=== PATIENT | male | born 1985 | race Caucasian/White ===

== ENCOUNTER 2018-09-21 23:34 | Emergency (ER) | payer OTHER ==
[2018-09-21 23:36] VITALS: BMI 29.0
[2018-09-21 23:44] VITALS: RESP 18; TEMP 98
--- NOTE | 2018-09-22 00:09 | ED PDOC ---
Arrival/HPI - General Chief Complaint: Alcohol Ingestion Time Seen by Provider: 09/21/18 23:38 Historian: Patient - History of Present Illness Narrative History of Present Illness (Text): 09/21/18 23:40 Naveen Nuno is a 32 year old male who presents to the Emergency department brought in by EMS for alcohol intoxication. Patient was found wandering around a [place] intoxicated. Limited HPI and ROS secondary to pat ient's alcohol intoxication. Past Medical History - Provider Review Nursing Documentation Reviewed: Yes - Psychiatric Hx Substance Use: No Family/Social History - Physician Review Nursing Documentation Reviewed: Yes Family/Social History: Unknown Family HX Smoking Status: Unknown If Ever Smoked Hx Alcohol Use: Yes (amount unknown) Hx Substance Use: No Allergies/Home Meds Allergies/Adverse Reactions: Allergies Unobtainable Allergy (Verified 09/21/18 23:35) Home Medications: Home Meds Medication Instructions Recorded Confirmed Unobtainable 09/21/18 09/21/18 Review of Systems - Review of Systems Systems not reviewed;Unavailable: Intoxicated Physical Exam Vital Signs Reviewed: Yes Vital Signs Temp Pulse Resp BP Pulse Ox 09/21/18 23:43 98.0 F 61 18 127/73 95 Temperature: Afebrile Blood Pressure: Normal Pulse: Regular Respiratory Rate: Normal Appearance: Positive for: Well-Appearing, Comfortable Pain Distress: None Mental Status: Positive for: other (Inebriated) Finger Stick Blood Glucose: 120 - Systems Exam Head: Present: Normocephalic, Abrasion (old abrasion to left eyebrow, abrasion to right forehead) Pupils: Present: PERRL Extroacular Muscles: Present: EOMI Conjunctiva: Present: Normal Mouth: Present: Moist Mucous Membranes Neck: Present: Normal Range of Motion. No: Meningeal Signs, MIDLINE TENDERNESS, Paraspinal Tenderness Respiratory/Chest: Present: Clear to Auscultation, Good Air Exchange. No: Respiratory Distress, Accessory Muscle Use Cardiovascular: Present: Regular Rate and Rhythm, Normal S1, S2. No: Murmurs Abdomen: No: Tenderness, Distention, Peritoneal Signs Back: Present: Normal Inspection. No: CVA Tenderness, Midline Tenderness, Paraspinal Tenderness Upper Extremity: Present: Normal Inspection. No: Cyanosis, Edema Lower Extremity: Present: Normal Inspection. No: Edema Neurological: Present: GCS=15, CN II-XII Intact Skin: Present: Warm, Dry, Normal Color. No: Rashes Psychiatric: Present: Intoxicated Medical Decision Making ED Course and Treatment: 09/21/18 23:40 Impression: 32 year old male brought in for alcohol intoxication. Plan: -- CT Head w/o contrast -- Alcohol level -- Reassess and disposition Progress Notes: 09/22/18 00:14 Reviewed EKG, sinus bradycardia at [address]-segment elevations or depres sions, no T-wave inversions, normal intervals. 09/22/18 02:50 CT Head: Normal size of the ventricles and extra-axial spaces for the patient's age. Normal white matter tracts of the supratentorial brain. Normal basal ganglia and thalami. Normal brainstem. Normal cerebellum. There is no demonstrated extra-axial, intraparenchymal, or intraventricular hemorrhage. There are no findings of an acute ischemic infarction. Normal calvarium. There is no demonstrated fracture. Left frontal subgaleal soft tissue hematoma. Normal visualized paranasal sinuses. IMPRESSION: Normal unenhanced CT scan of the brain. Electronically signed on Sep 22, 2018 2:49:32 AM EST by: Johann Nichols M.D., Certified by ABR, MSK, Neuroradiology 09/22/18 07:[address] Bland, pending sobriety, re-evaluation, and disposition. - RAD Interpretation Radiology Orders: 09/21/18 23:44 HEAD W/O CONTRAST [CT] Stat - Scribe Statement The provider has reviewed the documentation as recorded by the Luan Nath Provider Scribe Attestation: All medical record entries made by the Scribe were at my direction and personally dictated by me. I have reviewed the chart and agree that the record accurately reflects my personal performance of the history, physical exam, medical decision making, and the department course for this patient. I have also personally directed, reviewed, and agree with the discharge instructions and disposition. Disposition/Present on Arrival - Present on Arrival Any Indicators Present on Arrival: No History of DVT/PE: No History of Uncontrolled Diabetes: No Urinary Catheter: No History of Decub. Ulcer: No History Surgical Site Infection Following: None - Disposition Have Diagnosis and Disposition been Completed?: No Diagnosis: Alcohol intoxication Disposition Time: 07:00 Condition: STABLE Forms: [facility] ([place])
--- NOTE | 2018-09-22 08:17 | CT ---
Date of service: 09/22/2018 PROCEDURE: CT HEAD WITHOUT CONTRAST. HISTORY: Forehead injury/inebriated COMPARISON: None available. TECHNIQUE: Axial computed tomography images were obtained through the head/brain without intravenous contrast. Radiation dose: Total exam DLP = 986.16 mGy-cm. This CT exam was performed using one or more of the following dose reduction techniques: Automated exposure control, adjustment of the mA and/or kV according to patient size, and/or use of iterative reconstruction technique. FINDINGS: HEMORRHAGE: No intracranial hemorrhage. BRAIN: No mass effect or edema. No atrophy or chronic microvascular ischemic changes. VENTRICLES: Unremarkable. No hydrocephalus. CALVARIUM: There is soft tissue swelling over the left frontal region. There is no fracture PARANASAL SINUSES: Unremarkable as visualized. No significant inflammatory changes. MASTOID AIR CELLS: Unremarkable as visualized. No inflammatory changes. OTHER FINDINGS: The report concurs with the preliminary [facility] report IMPRESSION: No acute intracranial findings
[2018-09-22 09:27] VITALS: BP 104/67; PULSE 70; O2SAT 97
--- NOTE | 2018-09-22 09:41 | ED PDOC ---
Physical Exam - Physical Exam Narrative Physical Exam (Text): Signed out to me at change of shift pending sobriety and re-evaluation. Patient with positive serum alcohol. Head CT shows no acute findings. Patient arousable to verbal stimuli at 9:39 without any tenderness of any extremities, neck, head, abdomen. Pupils PERRL. Staff from cruise ship arrived to hospital to pick patient up so he can get back on ship prior to departure time. Vital Signs Temp Pulse Resp BP Pulse Ox 09/22/18 09:26 70 18 104/67 97 09/22/18 06:55 71 18 127/69 99 09/22/18 04:35 90 18 128/82 95 09/22/18 02:30 79 18 127/83 96 09/21/18 23:43 98.0 F 61 18 127/73 95 Finger Stick Blood Glucose: 120 Medical Decision Making - RAD Interpretation Radiology Orders: 09/21/18 23:44 HEAD W/O CONTRAST [CT] Stat Disposition/Present on Arrival - Present on Arrival Any Indicators Present on Arrival: No History of DVT/PE: No History of Uncontrolled Diabetes: No Urinary Catheter: No History of Decub. Ulcer: No History Surgical Site Infection Following: None - Disposition Have Diagnosis and Disposition been Completed?: Yes Diagnosis: Alcohol intoxication Disposition: HOME/ ROUTINE Disposition Time: 09:40 Patient Plan: Discharge Patient Problems: Current Active Problems Problem Status Onset Alcohol intoxication Acute Condition: STABLE Discharge Instructions (ExitCare): Effects of Alcohol on Your Health Forms: [facility] ([place])
--- NOTE | 2018-09-22 14:02 | CARD ---
APPROVED REPORT Date of service: 09/22/2018 EKG Measurement Heart [id number] <Conclusion> Sinus bradycardia Otherwise normal ECG
== END 2018-09-22 09:54 | disposition home or self-care (01) ==
LOC: EDBD → ED 23:34
DX: F10.129 Alcohol abuse with intoxication, unspecified (principal); Y90.8 Blood alcohol level of 240 mg/100 ml or more